=== PATIENT | female | born 1965 | race Asian ===

== ENCOUNTER 2023-09-17 09:49 | Inpatient (IN) | payer OTHER ==
[~2023-09-17] VITALS: Ht 157.5 cm; Wt 75.2 kg
[2023-09-17] MEDS ORDERED: MethylPREDNISolone SOD SUCC 125 MG/2 ML VIAL IVP ONE (10:00)
[2023-09-17] MEDS ORDERED: MECLIZINE HCL 25 MG TABLET PO ONE (10:00)
[2023-09-17 10:23] LABS: BASOPHILS % (AUTO) 0.2 % (0.0-2.0); EOSINOPHILS % (AUTO) 1.1 % (1.0-6.0); HEMATOCRIT 41.2 % (36-46); HEMOGLOBIN 13.5 g/dL (12.0-16.0); LYMPHOCYTES # (AUTO) 5.2 K/uL (1.0-4.8); LYMPHOCYTES % (AUTO) 43.8 % (22.0-44.0); MEAN CORPUSCULAR HEMOGLOBIN 31.6 pg (26.0-34.0); MEAN CORPUSCULAR HGB CONC 32.8 G/dL (31.0-37.0); MEAN CORPUSCULAR VOLUME 96 fL (80-100); MONOCYTES # (AUTO) 0.5 K/uL (0.1-1.0); MONOCYTES % (AUTO) 3.9 % (2.0-9.0); NEUTROPHILS # (AUTO) 6.1 K/uL (1.8-7.7); PLATELET COUNT (AUTO) 574 K/uL (150-450); RED BLOOD CELL COUNT(AUTO) 4.28 MIL/uL (4.00-5.20); RED CELL DISTRIBUTION WIDTH 12.9 % (11.5-14.5); WHITE BLOOD COUNT (AUTO) 11.9 K/uL (4.5-11.0)
[2023-09-17 10:33] LABS: CALCIUM, TOTAL 9.2 mg/dL (8.8-10.5); CREATININE 1.07 mg/dL (0.60-1.30); POTASSIUM 3.2 mmol/L (3.5-5.1)
[2023-09-17 10:41] LABS: AMMONIA 21 umol/L (11-32); TROPONIN I-HIGH SENSITIVITY 15 ng/L (<51)
[2023-09-17 10:45] LABS: LACTIC ACID 2.7 mmol/L (0.4-2.0); PROTHROMBIN TIME 10.1 SEC (9.4-11.6)
[2023-09-17 10:58] LABS: ALBUMIN 3.7 g/dL (3.4-5.0); BILIRUBIN,TOTAL 0.5 mg/dL (0.1-1.0); TOTAL PROTEIN, SERUM 7.4 g/dL (6.4-8.2)
[2023-09-17] MEDS ORDERED: SODIUM CHLORIDE 0.9% 2,200 ML IV ONE ×2 (11:00→13:45)
[2023-09-17] MEDS ORDERED: POTASSIUM CHLORIDE 20 MEQ ER TABLET PO ONE (11:15)
[2023-09-17 14:18] VITALS: BP 133/74; PULSE 64; RESP 20; TEMP 98
[2023-09-17 16:00] VITALS: BP 165/85; PULSE 62; RESP 18; TEMP 98
[2023-09-17] MEDS ORDERED: POTASSIUM CHLORIDE 20 MEQ ER TABLET PO PRN (16:30)
[2023-09-17] MEDS ORDERED: ACETAMINOPHEN 325 MG TABLET PO PRN (16:30)
[2023-09-17] MEDS ORDERED: MAGNESIUM HYDROXIDE SUSPENSION 30 ML UDCUP PO PRN (16:30)
[2023-09-17] MEDS ORDERED: DEXTROSE 50%-WATER 25 GM/50 ML SYRINGE IVP PRN (16:30)
[2023-09-17] MEDS ORDERED: SODIUM CHLORIDE 0.9% 1,000 ML IV ONE (16:30)
[2023-09-17] MEDS ORDERED: INSULIN LISPRO 100 UNITS/ML SQ PRN (16:30)
[2023-09-17] MEDS ORDERED: POTASSIUM CHL 10 MEQ/WATER 50 ML IV PRN (16:30)
[2023-09-17] MEDS: AmLODIPine BESYLATE 10 MG TABLET PO SCH (17:26)
[2023-09-17 18:29] LABS: APPEARANCE,URINE CLEAR (CLEAR); BILIRUBIN,URINE NEGATIVE (NEGATIVE); COLOR,URINE COLORLESS (YELLOW); GLUCOSE, URINE (UA) 70-100 mg/dL (NEGATIVE); KETONES,URINE NEGATIVE (NEGATIVE); LEUKOCYTE ESTERASE ,URINE NEGATIVE (NEGATIVE); NITRATE,URINE NEGATIVE (NEGATIVE); OCCULT BLOOD,URINE NEGATIVE (NEGATIVE); PROTEIN,URINE NEGATIVE (NEGATIVE); SPECIFIC GRAVITIY, URINE 1.007 (1.003-1.030); UROBILINOGEN,URINE <=1.0 mg/dL (<=1.0)
[2023-09-17 18:35] LABS: AMPHET/METH SCREEN,URINE NEGATIVE (NEGATIVE); BARBITURATE SCREEN, URINE NEGATIVE (NEGATIVE); BENZODIAZEPINES SCREEN,URINE NEGATIVE (NEGATIVE); CANNABINOID SCREEN,URINE NEGATIVE (NEGATIVE); COCAINE SCREEN,URINE NEGATIVE (NEGATIVE); METHADONE SCREEN, URINE NEGATIVE (NEGATIVE); OPIATE SCREEN,URINE NEGATIVE (NEGATIVE); PHENCYCLIDINE SCREEN,URINE NEGATIVE (NEGATIVE)
[2023-09-17 18:36] LABS: ALCOHOL, URINE DRUG SCREEN NEGATIVE (NEGATIVE)
[2023-09-17 18:49] LABS: BACTERIA,URINE None Seen /HPF (None Seen); RBC,URINE None Seen /HPF (0-2); WBC,URINE None Seen /HPF (0-5)
[2023-09-17 20:10] VITALS: BP 151/80; PULSE 73; RESP 18; TEMP 98.2
[2023-09-17] MEDS: FAMOTIDINE 20 MG TABLET PO SCH (20:42)
[2023-09-18 00:19] VITALS: BP 118/61; PULSE 64; RESP 16; TEMP 98.3
[2023-09-18 00:46] LABS: GLUCOMETER DEV NAME(LOC) 5N.1C; GLUCOSE,POINT OF CARE 163 MG/DL (70-110)
[2023-09-18 00:51] LABS: GLUCOMETER DEV NAME(LOC) 5N.2C; GLUCOSE,POINT OF CARE 135 MG/DL (70-110)
[2023-09-18 06:11] VITALS: BP 146/79; PULSE 55; RESP 16; TEMP 98.2
[2023-09-18 07:29] VITALS: BP 131/82; PULSE 58; RESP 17; TEMP 98.8
[2023-09-18] MEDS: FAMOTIDINE 20 MG TABLET PO SCH (08:24)
[2023-09-18] MEDS: AmLODIPine BESYLATE 10 MG TABLET PO SCH (08:24)
[2023-09-18 09:21] LABS: GLUCOMETER DEV NAME(LOC) 5N.1C; GLUCOSE,POINT OF CARE 86 MG/DL (70-110)
[2023-09-18] MEDS ORDERED: PRED-729 PO (11:55)
[2023-09-18] MEDS ORDERED: AMLO-258 PO (11:55)
[2023-09-18] MEDS ORDERED: FAMO20 PO (11:55)
== END 2023-09-18 12:45 | disposition home or self-care (01) | DRG 916 ==
LOC: EMS 09:50 → 5S 13:19
PROVIDERS: ADMIT Hospitalist; ATTEND Hospitalist
DX: T78.09XA Anaphylactic reaction due to other food products, initial encounter (principal); E87.6 Hypokalemia; T38.0X5A Adverse effect of glucocorticoids and synthetic analogues, initial encounter; R42 Dizziness and giddiness; R73.9 Hyperglycemia, unspecified; I10 Essential (primary) hypertension; Z79.899 Other long term (current) drug therapy; Z91.041 Radiographic dye allergy status; Z88.8 Allergy status to other drugs, medicaments and biological substances; Y92.89 Other specified places as the place of occurrence of the external cause
CPT/HCPCS: 51702; 70450; 71045; 74176; 80053; 80307; 81001; 82140; 82550; 82962; 83036; 83605; 84132; 84484; 85025; 85610; 85730; 87040; 93005; 99285; J2930; J7030; 36415-L1; 36415-TC